=== PATIENT | male | born 1985 | race Caucasian/White ===

== ENCOUNTER 2016-07-27 14:07 | Emergency (ER) | payer OTHER ==
[~2016-07-27 14:07] MED LIST: DOCU-41 PO
[2016-07-27 14:25] VITALS: BP 106/66; PULSE 104; RESP 14; O2SAT 100
--- NOTE | 2016-07-27 16:22 | ED.REPORT ---
HPI-Neck Pain Free Text HPI Notes Jul 27, 2016 ED Provider: Babatunde Valverde MD Nursing Notes Stated Complaint: NECK PAIN CAN NOT MOVE Chief Complaint: General Complaint Allergies: Coded Allergies: No Known Allergies (Unverified , 03/19/16) Scheduled PRN Docusate Sodium (Colace) 100 Mg Capsule 100 MG PO BID PRN PRN For Constipation General Time Seen by Provider: 16:22 Past Medical History Past Medical History none reported Past Surgical History ear tubes as a child Reports: Tonsillectomy Smoking History Never Smoker Social History Alcohol Use: "Social" Drug Use: THC Other Social History: Occupation works as a [employer] new in [place] as off1 week. 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
== END 2016-07-27 16:20 | disposition left against medical advice (07) ==
LOC: SED 14:07
DX: Z53.21 Procedure and treatment not carried out due to patient leaving prior to being seen by health care provider (principal)